=== PATIENT | female | born 1980 | race Two or more races ===

== ENCOUNTER → 2017-06-06 09:00 | Outpatient (CLI) | payer OTHER ==
[~2017-06-06] VITALS: Ht 172.7 cm; Wt 68.5 kg
== END | disposition home or self-care (01) ==
LOC: LAB 09:00 → RECOVERY 09:30 → SURG 06-11 08:45 → EDSTATUS 06-11 09:30
DX: D12.7 Benign neoplasm of rectosigmoid junction (principal); D37.4 Neoplasm of uncertain behavior of colon; R59.0 Localized enlarged lymph nodes; C19 Malignant neoplasm of rectosigmoid junction; Z01.812 Encounter for preprocedural laboratory examination; Z01.818 Encounter for other preprocedural examination

== ENCOUNTER 2017-11-18 06:15 | Day surgery (SDC) | payer OTHER | END 2017-11-18 09:30 | disposition home or self-care (01) | LOC: AMB-ENDOS 06:15 | DX: D12.5 Benign neoplasm of sigmoid colon (principal); N80.5 Endometriosis of intestine ==